=== PATIENT | female | born 1990 | race Caucasian/White ===

== ENCOUNTER 2017-12-20 16:06 | Emergency (ER) | payer MEDICAID ==
[~2017-12-20 16:06] MED LIST: PREN1TAB89 PO
[2017-12-20 17:02] LABS: RAPID GROUP A STREP NEGATIVE (NEGATIVE)
== END 2017-12-20 17:21 | disposition home or self-care (01) ==
LOC: EDH 16:06
DX: O99.513 Diseases of the respiratory system complicating pregnancy, third trimester (principal); J10.1 Influenza due to other identified influenza virus with other respiratory manifestations; Z3A.32 32 weeks gestation of pregnancy
CPT/HCPCS: 87804; 87880

== ENCOUNTER 2019-06-16 22:10 | Emergency (ER) | payer MEDICAID, OTHER ==
[2019-06-16 22:49] LABS: BILIRUBIN,URINE Negative (NEGATIVE); COLOR,URINE Yellow (YELLOW); GLUCOSE, URINE (UA) Negative (NEGATIVE); KETONES,URINE Negative (NEGATIVE); LEUKOCYTE ESTERASE ,URINE Negative (NEGATIVE); NITRATE,URINE Negative (NEGATIVE); OCCULT BLOOD,URINE Negative (NEGATIVE); PH,URINE 5.5 (5.0-8.0); PROTEIN,URINE Negative (NEGATIVE)
[2019-06-16 22:57] LABS: APPEARANCE,URINE CLEAR (CLEAR)
[2019-06-16 22:58] LABS: HCG,QUAL RESULT NEGATIVE (NEGATIVE)
== END 2019-06-16 22:42 | disposition home or self-care (01) ==
LOC: EDH 22:10
DX: Z30.431 Encounter for routine checking of intrauterine contraceptive device (principal)
CPT/HCPCS: 81003; 81025

== ENCOUNTER 2019-12-26 16:43 | Emergency (ER) | payer SELFPAY | END 2019-12-26 17:16 | disposition home or self-care (01) | LOC: EDH 16:43 | DX: J20.9 Acute bronchitis, unspecified (principal); Z98.890 Other specified postprocedural states; Z72.0 Tobacco use ==

== ENCOUNTER 2021-12-18 19:55 | Emergency (ER) | payer MEDICAID ==
[~2021-12-18] VITALS: Ht 165.1 cm; Wt 103.4 kg
[~2021-12-18 19:55] MED LIST changes: +MACR100 PO
[2021-12-18 19:56] VITALS: BP 140/75
== END 2021-12-18 21:16 | disposition home or self-care (01) ==
LOC: EDH 19:55
DX: O20.0 Threatened abortion (principal); Z79.899 Other long term (current) drug therapy; Z3A.01 Less than 8 weeks gestation of pregnancy
CPT/HCPCS: 36415; 84702

== ENCOUNTER 2022-08-04 19:30 | Emergency (ER) | payer MEDICAID ==
[~2022-08-04] VITALS: Ht 165.1 cm; Wt 86.6 kg
[2022-08-04 20:15] LABS: APPEARANCE,URINE CLEAR (CLEAR); BILIRUBIN,URINE NEGATIVE (NEGATIVE); COLOR,URINE YELLOW (YELLOW); GLUCOSE, URINE (UA) NEGATIVE (NEGATIVE); KETONES,URINE NEGATIVE (NEGATIVE); LEUKOCYTE ESTERASE ,URINE 250 Leu/uL (NEGATIVE); NITRATE,URINE NEGATIVE (NEGATIVE); OCCULT BLOOD,URINE NEGATIVE (NEGATIVE); PH,URINE 5.5 (5.0-8.0); PROTEIN,URINE 10 mg/dL (NEGATIVE)
[2022-08-04 20:24] LABS: BASOPHILS % (AUTO) 0.3 % (0.0-5.0); EOSINOPHILS % (AUTO) 1.8 % (0.0-8.0); HEMATOCRIT 39.9 % (36-48); LYMPHOCYTES % (AUTO) 21.4 % (21.0-51.0); MEAN CORPUSCULAR HEMOGLOBIN 27.6 pg (27.0-33.0); MEAN CORPUSCULAR HGB CONC 33.3 g/dL (32.0-36.0); MEAN CORPUSCULAR VOLUME 82.8 fL (79-99); MONOCYTES % (AUTO) 4.2 % (3.0-13.0); NEUTROPHILS % (AUTO) 71.8 % (40.0-77.0); PLATELET COUNT (AUTO) 233 K/uL (130-400); RED BLOOD CELL COUNT(AUTO) 4.82 MIL/uL (4.00-5.50); RED CELL DISTRIBUTION WIDTH 13.3 % (11.0-15.5)
[2022-08-04 20:26] LABS: BACTERIA,URINE RARE /HPF (None Seen); MUCUS,URINE RARE LPF (None Seen); RBC,URINE 0-1 /HPF (0-1); SQUAMOUS EPITHELIAL CELL,UR FEW /HPF (0-2)
[2022-08-04] MEDS ORDERED: CEFTRIAXONE 1G VIAL IM ONE (20:30)
[2022-08-04 20:34] LABS: CREATININE 0.6 mg/dL (0.5-1.5); POTASSIUM 3.5 mmol/L (3.5-5.1)
[2022-08-04] MEDS ORDERED: CEPH500B PO (20:50)
[2022-08-04] MEDS ORDERED: PREN-61 PO (20:50)
[2022-08-04 20:58] LABS: ALBUMIN 3.4 g/dL (3.5-5.0); TOTAL PROTEIN, SERUM 7.3 g/dL (6.0-8.3)
[2022-08-04 21:02] VITALS: BP 110/64
== END 2022-08-04 21:20 | disposition home or self-care (01) ==
LOC: EDH 19:30
DX: O23.41 Unspecified infection of urinary tract in pregnancy, first trimester (principal); N39.0 Urinary tract infection, site not specified; Z3A.11 11 weeks gestation of pregnancy
CPT/HCPCS: 99284; 76801; 80053; 84702; 85025; 87088; 81001; 36415; 96372; J0696

== ENCOUNTER 2022-10-17 19:51 | Emergency (ER) | payer MEDICAID ==
[~2022-10-17] VITALS: Ht 165.1 cm; Wt 99.3 kg
[~2022-10-17 19:51] MED LIST changes: +CEPH500B PO; +PREN-61 PO
[2022-10-17 21:15] VITALS: BP 114/60
== END 2022-10-17 21:35 | disposition home or self-care (01) ==
LOC: EDH 19:51
DX: O99.511 Diseases of the respiratory system complicating pregnancy, first trimester (principal); R05.9 Cough, unspecified; Z79.899 Other long term (current) drug therapy; Z3A.00 Weeks of gestation of pregnancy not specified
CPT/HCPCS: 99281

== ENCOUNTER 2022-10-24 18:40 | Observation (INO) | payer MEDICAID ==
[~2022-10-24] VITALS: Ht 165.1 cm; Wt 99.3 kg
[2022-10-24 18:42] VITALS: BP 140/58
[2022-10-24 19:27] LABS: APPEARANCE,URINE CLEAR (CLEAR); BILIRUBIN,URINE NEGATIVE (NEGATIVE); COLOR,URINE LIGHT-YELLOW (YELLOW); GLUCOSE, URINE (UA) NEGATIVE (NEGATIVE); KETONES,URINE NEGATIVE (NEGATIVE); LEUKOCYTE ESTERASE ,URINE 25 Leu/uL (NEGATIVE); NITRATE,URINE NEGATIVE (NEGATIVE); OCCULT BLOOD,URINE NEGATIVE (NEGATIVE); PH,URINE 6.5 (5.0-8.0); PROTEIN,URINE NEGATIVE (NEGATIVE); UROBILINOGEN,URINE 0.2 mg/dL (0.2-1.0)
[2022-10-24 19:32] LABS: RBC,URINE 0-1 /HPF (0-1); SQUAMOUS EPITHELIAL CELL,UR MOD /HPF (0-2); WBC,URINE 0-1 /HPF (0-1)
[2022-10-24 19:48] LABS: AMPHET/METH SCREEN,URINE NEGATIVE (NEGATIVE); BARBITURATE SCREEN, URINE NEGATIVE (NEGATIVE); BENZODIAZEPINES SCREEN,URINE NEGATIVE (NEGATIVE); CANNABINOID SCREEN,URINE NEGATIVE (NEGATIVE); COCAINE SCREEN,URINE NEGATIVE (NEGATIVE); OPIATE SCREEN,URINE NEGATIVE (NEGATIVE); PHENCYCLIDINE SCREEN,URINE NEGATIVE (NEGATIVE)
== END 2022-10-24 21:07 | disposition home or self-care (01) ==
LOC: EDH 18:40 → LDH 18:41
PROVIDERS: ADMIT Obstetrics & Gynecology; ATTEND Obstetrics & Gynecology
DX: O62.9 Abnormality of forces of labor, unspecified (principal); Z3A.23 23 weeks gestation of pregnancy; Z79.899 Other long term (current) drug therapy
CPT/HCPCS: 59025; 80305; 81001; G0378 ×2; G0379

== ENCOUNTER 2022-11-18 13:28 | Emergency (ER) | payer MEDICAID ==
[~2022-11-18] VITALS: Ht 165.1 cm; Wt 99.8 kg
[2022-11-18] MEDS ORDERED: ACETAMINOPHEN 500 MG TABLET PO ONE (15:00)
[2022-11-18 15:15] LABS: APPEARANCE,URINE CLEAR (CLEAR); BILIRUBIN,URINE NEGATIVE (NEGATIVE); COLOR,URINE YELLOW (YELLOW); GLUCOSE, URINE (UA) 30 mg/dL (NEGATIVE); KETONES,URINE 10 mg/dL (NEGATIVE); LEUKOCYTE ESTERASE ,URINE NEGATIVE Leu/uL (NEGATIVE); NITRATE,URINE NEGATIVE (NEGATIVE); OCCULT BLOOD,URINE NEGATIVE (NEGATIVE); PROTEIN,URINE 30 mg/dL (NEGATIVE); UROBILINOGEN,URINE 0.2 mg/dL (0.2-1.0)
[2022-11-18 15:24] LABS: BACTERIA,URINE RARE /HPF (None Seen); MUCUS,URINE FEW LPF (None Seen); SQUAMOUS EPITHELIAL CELL,UR RARE /HPF (0-2); WBC,URINE 0-1 /HPF (0-1)
[2022-11-18] MEDS ORDERED: GUAIF10 PO (15:40)
[2022-11-18] MEDS ORDERED: ACET-66 PO (15:40)
[2022-11-18 15:43] VITALS: BP 128/67
== END 2022-11-18 15:47 | disposition home or self-care (01) ==
LOC: EDH 13:28
DX: U07.1 COVID-19 (principal); Z79.899 Other long term (current) drug therapy
CPT/HCPCS: 99283; 87635; 81001; C9803

== ENCOUNTER 2023-02-14 23:07 | Emergency (ER) | payer MEDICAID ==
[~2023-02-14] VITALS: Ht 165.1 cm; Wt 103.1 kg
[~2023-02-14 23:07] MED LIST changes: +ACET-66 PO; +GUAIF10 PO
[2023-02-14 23:11] VITALS: BP 130/80
[2023-02-14] MEDS ORDERED: HC2530C TP (23:26)
[2023-02-14] MEDS ORDERED: HYDR25SU11 RC (23:26)
[2023-02-14] MEDS ORDERED: HYDROCORTISONE 25 MG SUPPOSITORY PR SCH (23:30)
== END 2023-02-14 23:56 | disposition home or self-care (01) ==
LOC: EDH 23:07
DX: K64.8 Other hemorrhoids (principal)

== ENCOUNTER 2025-05-15 10:34 | Emergency (ER) | payer SELFPAY ==
[~2025-05-15] VITALS: Ht 165.1 cm; Wt 98.5 kg
[~2025-05-15 10:34] MED LIST changes: +GUAI100L96 PO; -GUAIF10 PO; +HC2530C TP; +HYDR25SU11 RC
[2025-05-15 10:40] VITALS: TEMP 97.7
[2025-05-15 11:01] LABS: APPEARANCE,URINE CLEAR (CLEAR); GLUCOSE, URINE (UA) NEGATIVE (NEGATIVE); LEUKOCYTE ESTERASE ,URINE NEGATIVE Leu/uL (NEGATIVE); NITRATE,URINE NEGATIVE (NEGATIVE); OCCULT BLOOD,URINE NEGATIVE (NEGATIVE)
[2025-05-15 11:02] LABS: ADD UA MICROSCOPIC NO
--- NOTE | 2025-05-15 11:14 | ERN ---
General Chief Complaint: Abdominal Pain Stated Complaint: RLQ PAIN Time Seen by MD: 10:39 Time Seen by Midlevel: 10:39 Source: patient History of Present Illness Initial Comments Patient is a 35-year-old female presenting to the emergency department for evaluation of right lower quadrant abdominal pain that started last night. Patient denies any fever, chills, dysuria, hematuria, or any other symptoms at this time. Denies being . Allergies: Coded Allergies: No Known Drug Allergies (Verified Allergy, Unknown, 02/26/14) Home Meds Active Scripts Dicyclomine HCl (Bentyl) 20 Mg Tab, 1 TAB PO TID for irritable bowel symptoms for 7 Days, #21 TAB 0 Refills Prov:AMANUEL WILSON CHIEF CONSOLE OPERATOR 05/15/25 Hydrocortisone (Hydrocort/Anusol Hc 2.5% Cream) 1 Appl/Gm Crm, 1 APPL TP Q8H for 3 Days, #30 APPL Prov:LESLEY FERNANDES MD 02/14/23 Hydrocortisone Acetate (Anucort-Hc) 25 Mg Supp.rect, 25 MG RC Q8H, #12 EA Prov:LESLEY FERNANDES MD 02/14/23 Guaifenesin (Robitussin Syrp) 100 Mg/5 Ml Syrp, 200 MG PO Q4PRN PRN for COUGH/COLD SYMPTOMS, #300 ML Prov:MEGGAN BURNS 11/18/22 Acetaminophen (Tylenol) 500 Mg Tab, 500 MG PO Q4PRN PRN for FEVER, #15 TAB Prov:MEGGAN BURNS 11/18/22 Vit No.78/Iron/FA (Prenatabs FA Tablet) 1 Each Tablet, 1 EACH PO DAILY, #100 TAB Prov:BOY OROPEZA 08/04/22 Cephalexin Monohydrate (Keflex) 500 Mg Cap, 500 MG PO TID for 7 Days, #21 CAP Prov:BOY OROPEZA 08/04/22 Nitrofurantoin/Nitrofuran Mac (Macrobid) 100 Mg Cap, 1 CAP PO BID for 7 Days, #14 CAP 0 Refills Prov:MEGGAN BURNS 12/16/21 Reported Medications Vit W-Ca,Fe,FA(<1 mg) ( Vitamins) 1 Each Tablet, 1 EACH PO DAILY, TAB 06/20/16 Past Medical History Past Medical History: No Pertinent History Medical History Other: Obese Past Surgical History: Family History Family History: Negative Social History Social History: Negative Female( History) LMP: Apr 30, 2025 : 9 Para: 6 Aborts: 2 ROS Dictation CONSTITUTIONAL: Negative except for HPI HEAD/FACE: Negative except for HPI EENT: Negative except for HPI RESPIRATORY: Negative except for HPI GASTROINTESTINAL/ABDOMINAL: Negative except for HPI GENITOURINARY: Negative except for HPI MUSCULOSKELETAL: Negative except for HPI INTEGUMENTARY: Negative except for HPI NEUROLOGICAL/PSYCH: Negative except for HPI HEMATOLOGIC/LYMPHATIC: Negative except for HPI All Systems Negative, Except as noted above. 13 point review of systems assessed and all negative except for above. Physical Exam Physical Exam Dictation Vital Signs reviewed General Appearance: Alert, oriented x 3, no acute distress, well developed, nourished. Head and Face: non-traumatic. Eyes: PERRL, pink conjunctivas, eyelid no trauma, anterior chamber with arcus senilis. Ears: Pinnas intact and no signs of trauma or erythema ear canals clear and no discharge TM no erythema Nose: No discharge, no bleeding. Oropharynx: Mouth normal, tongue pink, pharynx clear,no erythema, tonsils no exudates, no abscesses noted, mucous membrane moist Neck: Supple, non-tender, no thyromegaly, no masses, no JVD, no bruits Breast:Deferred Chest:No tenderness, no crepitus, no paradoxical movement, no retractions Lungs:Clear, well-ventilated, symmetric, no rales, no wheezing, no rhonchi, no stridor, good breath sounds bilaterally Heart: Regular rate, regular rhythm, no murmur, no gallops Vascular: no peripheral edema, Abdomen: Soft, positive bowel sounds, nondistended, no guarding, nontender, no rebound, no masses no hepatomegaly, no splenomegaly, no Hunt's sign, no hernias. Rectal: Deferred Genital: Deferred Neurological: Normal speech, motor function intact, sensory function intact Musculoskeletal: Neck nontender, full range of motion, back nontender, full range of motion, Extremities: nontender, full range of motion Skin: Color pink, dry, no turgor, no rash, no lacerations, no abrasions, no contusions. Lymphatic: Deferred Results Laboratory and Microbiology Lab and Micro Result Laboratory Tests Test 05/15/25 10:47 05/15/25 10:49 Urine Color YELLOW (YELLOW) Urine Appearance CLEAR (CLEAR) Urine pH 5.5 (5.0-8.0) Urine Specific [place] 1.030 (1.001-1.031) Urine Protein NEGATIVE mg/dL (NEGATIVE) Urine Glucose (UA) NEGATIVE mg/dL (NEGATIVE) Urine Ketones NEGATIVE mg/dL (NEGATIVE) Urine Occult Blood NEGATIVE (NEGATIVE) Urine Nitrate NEGATIVE (NEGATIVE) Urine Bilirubin NEGATIVE mg/dL (NEGATIVE) Urine Urobilinogen 0.2 mg/dL (0.2-1.0) Urine Leukocyte Esterase NEGATIVE Ezekiel/uL Serum Test, Qualitative NEGATIVE (NEGATIVE) White Blood Count 10.9 K/uL (4.8-10.8) H Red Blood Count 5.17 MIL/uL (4.00-5.50) Hemoglobin 12.9 g/dL (12.0-16.0) Hematocrit 40.9 % (36-48) Mean Corpuscular Volume 79.1 fL (79-99) Mean Corpuscular Hemoglobin 25.0 pg (27.0-33.0) L Mean Corpuscular Hemoglobin Concent 31.5 g/dL (32.0-36.0) L Red Cell Distribution Width 14.7 % (11.0-15.5) Platelet Count 289 K/uL (130-400) Mean Platelet Volume 10.7 fL (7.5-10.5) H Immature Granulocyte % (Auto) 0.7 % (0-1) Neutrophils (%) (Auto) 67.5 % (40.0-77.0) Lymphocytes (%) (Auto) 23.6 % (21.0-51.0) Monocytes (%) (Auto) 5.9 % (3.0-13.0) Eosinophils (%) (Auto) 1.8 % (0.0-8.0) Basophils (%) (Auto) 0.5 % (0.0-5.0) Neutrophils # (Auto) 7.4 K/uL (1.8-7.7) Lymphocytes # (Auto) 2.6 K/uL (1.0-4.8) Monocytes # (Auto) 0.6 K/uL (0.1-1.0) Eosinophils # (Auto) 0.20 K/uL (0.00-0.70) Basophils # (Auto) 0.05 K/uL (0.00-0.20) Absolute Immature Granulocyte (auto 0.08 K/uL (0-1) Nucleated Red Blood Cells 0.0 % (0.0-0.19) Red Blood Cell Morphology See comments Sodium Level 138 mmol/L (136-145) Potassium Level 4.0 mmol/L (3.5-5.1) Chloride Level 101 mmol/L (101-111) Carbon Dioxide Level 29 mmol/L (21-32) Blood Urea Nitrogen 19 mg/dL (7-18) H Creatinine 0.8 mg/dL (0.5-1.0) Glomerular Filtration Rate Calc 97 mL/min (>90) Random Glucose 98 mg/dL (70-105) Total Calcium 9.3 mg/dL (8.5-10.1) Labs Reviewed?: Yes EKG/XRAY/US/CT/MRI CT Scan Comment CT abdomen/pelvis with cholelithiasis and no evidence of cholecystitis along with the umbilical hernia as interpreted by radiologist. MDM MDM: Differential diagnosis: Acute cholecystitis, cholelithiasis, acute pancreatitis, acute diverticulitis. Rationale: Tests considered and ordered secondary to shared decision making include: Previous outside records reviewed: Old ER visits. Risk of complication and/or morbidity or mortality of patient management: None Medications-Per medication reconciliation Need for hospitalization: Patient does not meet criteria for hospitalization. Need for emergency major/minor surgery: No There are no social concerns with this patient. Prescription drug management Prescriptions will include symptomatic care Patient's prior external medical records from other ER visits were reviewed by me as indicated. Prior testing and results from previous visits were reviewed. Prior tests were taken into account with medical decision making and resource utilization, independent historian/historians were used to obtain complete medical history. I independently interpreted the test that were performed, results were reviewed by me and considered findings on radiology if ordered. Medical management and examination interpretation discussions were had by me with other qualified healthcare professionals as indicated for the patient's care. ED Course Orders Procedure Category Date Status Time Cbc With Differential LAB 05/15/25 Complete 10:39 Basic Metabolic Panel LAB 05/15/25 Complete 10:39 Urinalysis Profile LAB 05/15/25 Complete 10:39 Testing, LAB 05/15/25 Complete Serum Hcg 10:39 Ct Abdomen/Pelvis CT 05/15/25 Resulted W/Contrast 10:39 Iohexol (Omnipaque) PHA 05/15/25 Complete 13:12 Ketorolac PHA 05/15/25 Complete Tromethamine 30mg/Ml 16:00 Ketorolac PHA 05/15/25 Complete Tromethamine 30mg/Ml 15:43 Current Medications Medications (Trade) Dose Ordered Sig/Giselle Route PRN Reason Start Time Stop Time Status Last Admin Dose Admin Iohexol (Omnipaque) 35,000 mg STK-MED ONCE IV 05/15/25 13:12 05/15/25 13:12 DC Ketorolac Tromethamine (toRADol) 30 mg ONCE ONCE IVP 05/15/25 16:00 05/15/25 16:01 DC 05/15/25 15:49 Ketorolac Tromethamine (toRADol) 30 mg STK-MED ONCE .ROUTE 05/15/25 15:43 05/15/25 15:45 DC Vital Signs Date Time Temp Pulse Resp B/P (MAP) Pulse Ox O2 Delivery O2 Flow Rate FiO2 05/15/25 14:33 82 18 120/72 99 Room Air* 0 21 05/15/25 10:40 97.7 87 16 118/72 98 Room Air* 0 21 05/15/25 10:35 97.7 87 16 118/72 98 Room Air 0 DX & DISP Disposition: Discharge Departure Impression: Primary Impression: Cholelithiasis without cholecystitis Additional Impression: Umbilical hernia with obstruction, without gangrene Condition: Stable Scripts Dicyclomine HCl (Bentyl) 20 Mg Tab 1 TAB PO TID for irritable bowel symptoms for 7 Days, #21 TAB 0 Refills Prov: AMANUEL WILSON 05/15/25 Referrals: SELF,REFERRAL (PCP) Time of Disposition: 15:54 JUANCARLOS CISNEROS May 15, 2025 11:14 AMANUEL WILSON May 15, 2025 15:54
[2025-05-15 11:16] LABS: IMMATURE GRANULOCYTE ABSOLUTE 0.08 K/uL (0-1); NUCLEATED RED BLOOD CELLS 0.0 % (0.0-0.19); PLATELET COUNT (AUTO) 289 K/uL (130-400); RED BLOOD CELL COUNT(AUTO) 5.17 MIL/uL (4.00-5.50); RED CELL DISTRIBUTION WIDTH 14.7 % (11.0-15.5); WHITE BLOOD COUNT (AUTO) 10.9 K/uL (4.8-10.8)
[2025-05-15 11:37] LABS: CREATININE 0.8 mg/dL (0.5-1.0); GLOMERULAR FILTR. RATE CALC 97.0 mL/min (>90); GLUCOSE,RANDOM 98.0 mg/dL (70-105); SODIUM SERUM 138.0 mmol/L (136-145); UREA NITROGEN, BLOOD 19.0 mg/dL (7-18)
[2025-05-15] MEDS ORDERED: IOHEXOL 350 MG/ML 100ML INFUS..BTL IV ONE (13:12)
[2025-05-15 14:33] VITALS: BP 120/72; PULSE 82; RESP 18; O2SAT 99
--- NOTE | 2025-05-15 15:28 | HMCIMG ---
EXAM: CT Abdomen and Pelvis with IV contrast CLINICAL HISTORY: RLQ ABD PAIN R/O APPENDICITIS TECHNIQUE: Axial computed tomography images of the abdomen and pelvis with intravenous contrast. CONTRAST: with intravenous contrast. COMPARISON: Study date -04/27/17 FINDINGS: LUNG BASES: Subtle interlobular septal thickening in the medial segment of the right middle lobe and lingular segment of the left upper lobe. No pleural effusions are seen. LIVER: The liver is enlarged; the right hepatic lobe measures up to 19 cm. There is no focal hepatic abnormality or intrahepatic biliary ductal dilatation Otherwise, the liver appears unremarkable GALLBLADDER AND BILE DUCTS: Gallbladder is distended with a few calculi, the largest measuring approximately 30 x 24 mm, with normal gallbladder wall thickness. No evidence of any pericholecystic inflammatory changes, no biliary ductal dilatation is evident. PANCREAS: Unremarkable. SPLEEN: Appears enlarged, measures 13.1 cm. Otherwise spleen appears unremarkable. ADRENAL GLANDS: Unremarkable. KIDNEYS, URETERS, AND BLADDER: The kidneys appear within normal limits. There is no hydronephrosis or hydroureter. No urinary calculi are seen. STOMACH AND BOWEL: Unremarkable appearance of the stomach and bowel. No evidence of bowel obstruction. No evidence suggesting enteritis or colitis. APPENDIX: No evidence of acute appendicitis on CT examination. PERITONEUM: No free fluid. No free air. LYMPH NODES: No lymphadenopathy is evident. REPRODUCTIVE: Approximately 26 x 24 mm-sized follicular cyst in the right ovary. Otherwise, unremarkable as visualized. VASCULATURE: No evidence of abdominal aortic aneurysm. BONES: No aggressive appearing osseous lesion. No acute osseous pathology is evident. Approximately 10 mm gap defect noted at the umbilicus region, through which herniation of the omental fat, suggestive of umbilical hernia, is likelyIMPRESSION: 1. No acute intraabdominal or pelvic pathology. Specifically, the appendix is normal. 2. Gallbladder calculi with the largest measuring 30 x 24 mm, without cholecystitis. 3. Umbilical hernia with 10 mm defect containing omental fat. /[place]
[2025-05-15] MEDS ORDERED: DICY20TA2 PO (15:54)
== END 2025-05-15 16:00 | disposition home or self-care (01) ==
LOC: EDH 10:34
DX: K80.20 Calculus of gallbladder without cholecystitis without obstruction (principal); K42.0 Umbilical hernia with obstruction, without gangrene; E66.9 Obesity, unspecified; Z79.899 Other long term (current) drug therapy; Z98.890 Other specified postprocedural states
CPT/HCPCS: 99285; 74177; 96374; 80048; 84703; 85025; 81003; 36415; J1885; Q9967